=== PATIENT | female | born 1965 | race Caucasian/White ===

== ENCOUNTER 2021-08-10 08:20 | Emergency (ER) | payer OTHER, SELFPAY ==
--- NOTE | ~2021-08-10 | XR_ITS ---
EXAMINATION: XR foot LT min 3V DATE: 08/10/2021 10:32 INDICATION: Left foot pain TECHNIQUE: Dorsoplantar, lateral, and 2 oblique views of the left foot were obtained. COMPARISON: 11/05/2011 FINDINGS: Bone alignment is normal. There is no fracture. 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 Posterior an d plantar calcaneal enthesophytes are noted. The soft tissues are unremarkable. IMPRESSION: 1. No acute osseous abnormality. Reviewed, dictated and finalized at location A.
[2021-08-10 08:32] VITALS: BP 151/104; PULSE 78; RESP 16; TEMP 35.7; O2SAT 97
--- NOTE | 2021-08-10 08:39 | ED.LOWEXIN ---
HPI - Extremity Injury (Lower) General Chief Complaint: Extremity Injury, Lower Stated Complaint: Left foot Pain Time Seen by Provider: 08/10/21 08:32 Source: patient Mode of arrival: ambulatory Limitations: no limitations History of Present Illness HPI Narrative: 55-year-old female presented for complaint of chronic left foot pain worsening for several months. Pain is located to left lateral heel and lateral foot, worsens throughout the day. 2 months ago she went to the [facility] to replace her shoe inserts for bilateral foot pain, however the left foot pain did not resolve. 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 Endorses 8 years ago left lateral foot fracture, did not require surgery at that time. She has been using Aleve and ice for symptoms. She denies numbness, tingling, weakness in the foot, denies bruising or injury. Related Data Home Medications Medication Instructions Recorded Confirmed apremilast 30 mg tablet (Otezla) tablet PO 08/10/21 levothyroxine 112 mcg tablet tablet 08/10/21 (Synthroid) Allergies Allergy/AdvReac Type Severity Reaction Status Date / Time meperidine Allergy Unknown Verified 04/10/21 16:47 Penicillins Allergy Unknown Verified 04/10/21 16:47 MEPERIDINE HCL Allergy Unknown Uncoded 04/10/21 16:47 Review of Systems Review of Systems: CONSTITUTIONAL: Denies body aches, fever, chills CARDIOVASCULAR: Denies chest pain, palpitations RESPIRATORY: Denies dyspnea. SKIN: Denies rash, itching, or wounds. MUSCULOSKELETAL: reports left foot pain NEUROLOGIC: Denies headache, numbness, tingling, or weakness. All systems reviewed & are unremarkable except as noted in HPI and below [facility] Family History Family History Other Diabetes mellitus Family history of cardiovascular disease Hypertension Social History Social History Smoking status: Never smoker Alcohol intake: never Comments At time of signature, I have reviewed and agree with nursing past medical, surgical, social and family history unless otherwise noted. Please see nursing chart for further information. There is no relevant family history pertinent to the presenting complaint Exam Narrative: GENERAL: Well-appearing CHEST: Speaks in full sentences. No respiratory distress. HEART: Regular rate and rhythm. Normal and equal peripheral pulses. EXTREMITIES: Left lateral heel pain with palpation. Left foot has normal strength and sensation, normal range of motion. No edema or ecchymosis. No open wounds, skin tenting, or obvious deformity; pulse palpable and equal bilaterally, skin warm, dry, pink. Capillary refill less than 3 seconds. Ambulates with steady gait. She is wearing flip-flops. SKIN: Warm, dry, no rash. NEURO: Alert and oriented x3. PSYCH: Normal mood and affect Course Course Emergency Course: Patient is aware of diagnosis, understands and agrees to treatment plan. Anticipatory guidance given. Patient agrees to follow-up as directed and is aware of reasons to seek care at the emergency department. Portions of this record may have been created with voice recognition software Level of Care: Express Care Visit Vital Signs Vital signs: Vital Signs Temperature 96.3 F L 08/10/21 08:32 Pulse Rate 78 08/10/21 08:32 Respiratory Rate 16 08/10/21 08:32 Blood Pressure 151/104 H 08/10/21 08:32 Pulse Oximetry 97 08/10/21 08:32 Oxygen Delivery Room Air 08/10/21 08:32 Temperature 96.3 F L 08/10/21 08:32 Pulse Rate 78 08/10/21 08:32 Respiratory Rate 16 08/10/21 08:32 Blood Pressure 151/104 H 08/10/21 08:32 Pulse Oximetry 97 08/10/21 08:32 Oxygen Delivery Room Air 08/10/21 08:32 Reviewed MDM - Extremity Injury (Lower) MDM Narrative Medical decision making narrative: Pt is advised
--- NOTE | 2021-08-10 09:00 | PC.NURSE ---
Pt informed of no X ray at this facility today. Pt is going to go to [facility] at 1000 for an Xray and will resume care there. Will call report to RN at [facility] at 1000. Pt ambulated out with no distress.
--- NOTE | 2021-08-10 10:05 | PC.NURSE ---
Report given to Keesha AMES at [facility].
== END 2021-08-10 10:55 | disposition home or self-care (01) ==
PROVIDERS: Emergency Provider Nurse Practitioner Family; PCP Family Medicine
DX: M79.672 Pain in left foot (principal); E03.9 Hypothyroidism, unspecified; L40.9 Psoriasis, unspecified
CPT/HCPCS: 73630; 99213; G0463